=== PATIENT | male | born 1995 | race Caucasian/White ===

== ENCOUNTER 2019-06-28 13:00 | Emergency (ER) | payer OTHER ==
[2019-06-28 13:23] VITALS: BP 131/80
[2019-06-28] MEDS ORDERED: predniSONE TAB* 20 MG PO ONE (13:53)
[2019-06-28] MEDS ORDERED: Albuterol 2.5 MG/3 ML NEB.SOL* (0.083%) INH ONE (13:53)
--- NOTE | 2019-06-28 13:54 | UC ---
General HPI - HPI Summary HPI Summary: tx by local ER on 06/18 for dehydration. has continued to have progressive - subjective fevers, cough and some HUITRON since. also c/o loss of voice. no cp. no hx asthma. does not vape. - History of Current Complaint Chief Complaint: UCGeneralIllness Stated Complaint: FEVER,COUGH,CONGESTION,VOMITING Time Seen by Provider: 06/28/19 13:46 Hx Obtained From: Patient, Family/Foreman/Project Manager Onset/Duration: Gradual Onset Timing: Constant Pain Intensity: 0 - Allergy/Home Medications Allergies/Adverse Reactions: Allergies Allergy/AdvReac Type Severity Reaction Status Date / Time No Known Allergies Allergy Verified 06/28/19 13:20 Home Medications: Home Medications Acetaminophen [Tylenol Extra Strength] 1,000 mg PO ONCE 06/28/19 [History Confirmed 06/28/19] Ibuprofen TAB* [Motrin TAB* 400 MG] 400 mg PO Q6H PRN 06/28/19 [History Confirmed 06/28/19] PMH/Surg Hx/FS Hx/Imm Hx Previously Healthy: Yes - Surgical History Surgical History: None - Family History Known Family History: Positive: Non-Contributory - Social History Occupation: Employed Full-time - [employer] Alcohol Use: Occasionally Substance Use Type: None Smoking Status (MU): Never Smoked Tobacco Type: Smokeless Tobacco Amount Used/How Often: 1/2 can per day Review of Systems All Other Systems Reviewed And Are Negative: No Constitutional: Positive: Fever, Chills Respiratory: Positive: Shortness Of Breath, Cough Cardiovascular: Negative: Palpitations, Chest Pain Gastrointestinal: Negative: Vomiting, Diarrhea, Nausea Musculoskeletal: Negative: Myalgia Neurological: Negative: Headache Physical Exam Triage Information Reviewed: Yes Appearance: Well-Appearing Vital Signs: Initial Vital Signs Temp 99.1 F 06/28/19 13:18 Pulse 95 06/28/19 13:18 Resp 15 06/28/19 13:18 BP 131/80 06/28/19 13:18 Pulse Ox 97 06/28/19 13:18 Vital Signs Reviewed: Yes Eyes: Positive: Conjunctiva Clear ENT: Positive: Pharynx normal, TMs normal, Hoarse voice, Other - No stridor. Negative: Nasal congestion, Nasal drainage Neck: Positive: Supple, Nontender, No Lymphadenopathy Respiratory: Positive: No respiratory distress, Decreased breath sounds. Negative: Crackles, Rhonchi, Wheezing Cardiovascular: Positive: RRR, No Murmur Abdomen Description: Positive: Nontender Musculoskeletal: Positive: ROM Intact Neurological: Positive: Alert Psychological: Positive: Age Appropriate Behavior Skin Exam: Normal Diagnostics - Radiology No standard instances Radiology Interpretation Completed By: Radiologist - IMPRESSION: PATCHY LEFT LOWER LOBE CONSOLIDATION. RECOMMEND FOLLOW-UP UNTIL RESOLUTION TO EXCLUDE UNDERLYING PULMONARY PARENCHYMAL PATHOLOGY. Re-Evaluation - Re-Evaluation First Eval Re-Evaluation Time: 14:35 Change: Improved - BETTER AERATION Course/Dx - Differential Dx - Multi-Symptom Differential Diagnoses: Other - pneumonia but non toxic and not hypoxic thus out pt tx appropriate. - Diagnoses Provider Diagnosis: Laryngitis, Pneumonia Discharge ED - Sign-Out/Discharge Documenting (check all that apply): Patient Departure All imaging exams completed and their final reports reviewed: Yes - Discharge Plan Condition: Stable Disposition: HOME Prescriptions: Albuterol HFA INHALER* [Ventolin HFA Inhaler*] 2 puff INH Q6H #1 mdi DOXYcycline CAP(*) [DOXYcycline 100MG CAP(*)] 100 mg PO BID 10 Days #20 cap predniSONE TAB* [Deltasone 20 MG TAB*] 40 mg PO DAILY 3 Days #6 tab Patient Education Materials: Laryngitis (ED), Pneumonia (ED) Referrals: NUVIA Coon [Medical Doctor] - 7 Days Additional Instructions: GO TO THE ER FOR ANY WORSENING. - Billing Disposition and Condition Condition: STABLE Disposition: Home
== END 2019-06-28 14:51 | disposition home or self-care (01) ==
LOC: UCCORT 13:00
DX: J04.0 Acute laryngitis (principal); J18.9 Pneumonia, unspecified organism
CPT/HCPCS: 71046; 99202; G0463; J7512